=== PATIENT | female | born 1955 | race Caucasian/White ===

== ENCOUNTER 2024-06-05 06:00 | Day surgery (SDC) | payer MEDICARE, OTHER, SELFPAY ==
[2024-05-11 10:01] VITALS: BMI 20.2
--- NOTE | 2024-05-11 11:16 | HPS.HSE ---
Family Physician
-
Family Physician: NO INTERVIEW UNKNOWN
Chief Complaint
-
Paroxysmal atrial fibrillation and atrial flutter.
History of Present Illness
The patient is a 68-year-old female presenting today for paroxysmal atrial fibrillation and atrial flutter. The patient reports shortness of breath and fatigue associated with her atrial arrhythmias. She previously underwent a
cardioversion in January 2024 secondary to these diagnoses. She is on current pharmacological therapy with Metoprolol Succinate and Amiodarone. She has been compliant with Eliquis for oral anticoagulation for a CHADS-VASc of 4. She is noted to
have associated cardiomyopathy on her last echocardiogram, possibly nonischemic. She is on current goal directed therapy. She notes that her current symptoms greatly interfere with her activities of daily living and overall impact her quality of
life. She is interested in pursuing with pulmonary vein isolation for further arrhythmia management. She denies any current complaints today such as chest pain and shortness of breath at rest, nausea, vomiting, diarrhea, lightheadedness, dizziness,
cough, sore throat, or fever.
Medical History
Past Medical History
Past Medical History: Reports Other
Additional Past Medical History:
1. Paroxysmal atrial fibrillation and atrial flutter, status post cardioversion 01/2024; pharmacological therapy with Metoprolol Succinate and Amiodarone, oral anticoagulation with Eliquis.
2. Hypertension.
3. Left bundle branch block.
4. Congestive heart failure, reduced ejection fraction.
5. Cardiomyopathy, likely nonischemic.
6. Mild-moderate tricuspid regurgitation.
7. Mild mitral regurgitation.
8. Newly diagnosed obstructive sleep apnea, awaiting further management.
9. Hemorrhoids.
10. Hypothyroidism.
11. Left sided breast cancer, 1997, status post left lumpectomy; reoccurrence in 2011, status post bilateral mastectomy, radiation, and chemotherapy.
12. Glaucoma.
13. Osteoporosis.
14. Mild leukocytosis, asymptomatic.
Past Surgical History: Reports Other
Additional Past Surgical History:
1. Cardioversion.
2. Bilateral mastectomy.
3. Left lumpectomy.
4. Biopsy of left breast.
5. Wide excision of left breast.
6. D&C.
7. Anderson teeth extraction.
8. Colonoscopy x4.
Social History
Tobacco: Non-smoker
Alcohol: None
Personal:
Living: Other (She lives with her in a ranch style home. )
Family History
Family History: Not pertinent
Allergies / Home Medications
Allergy/Medication List:
Home medications:
1. Amiodarone 200 mg p.o. daily.
2. Eliquis 5 mg p.o. twice a day.
3. Beta carotene 1 capsule p.o. weekly.
4. Cholecalciferol 25 mcg p.o. weekly.
5. Jardiance 10 mg p.o. daily.
6. Glucosamine 1 capsule p.o. weekly.
7. Latanoprost 1 drop ophthalmic every evening.
8. Levothyroxine 75 mcg p.o. daily.
9. Lutein Plus 1 capsule p.o. weekly.
10. Metoprolol Succinate 25 mg p.o. twice a day.
11. Multivitamin 1 tablet p.o. weekly.
12. Entresto 97-103 mg p.o. twice a day.
13. Spironolactone 25 mg p.o. daily.
14. Calcium magnesium zinc 1 capsule p.o. daily.
Allergies: No known allergies.
Review of Systems
-
A 12 point ROS was completed and negative except as noted: Yes
Physical Exam
Vital Signs
Blood pressure 134/77. Heart rate 59. Respirations 18. Pulse ox 99% on room air.
Height 5 feet, 4.5 inches. Weight 54.3 kg. BMI 20.2.
Physical Exam
General: Well Developed, Well Nourished and No Apparent Distress
HEENT: NormoCephalic, Moist mucous membranes, Atraumatic and PERRLA
Respiratory: Clear
Cardiac: Bradycardia
GI: Soft, Non Tender and Non Distended
Musculoskeletal: No Edema and Normal Gait & Station
Skin: Warm and Dry
Neuro: AO x 3 and Nonfocal/grossly intact
Laboratory Results
-
DIAGNOSTIC STUDIES as of 05/11/2024: White blood cell count 11.0. Hemoglobin 14.4. Platelet count 291,000. PT 18.2. INR 1.46. Sodium 137. Potassium 4.7. BUN 23. Creatinine 0.9. Glucose 90. Calcium 9.4. Magnesium 2.3. AST 26. ALT 24. Albumin 4.2.
Type and screen B positive.
EKG 05/11/2024: Sinus bradycardia. Left axis deviation. Left bundle branch block.
Chest CT 05/11/2024: Short segment common vestibule for the left superior and inferior pulmonary veins, fairly commonly seen and considered normal variant. No evidence for left atrial thrombus.
Echocardiogram 01/17/2024: Moderately depressed LV systolic function. Ejection fraction is 30-35%. Significant tachycardia with [id number] variability. Mild to moderate tricuspid regurgitation. Mild mitral regurgitation.
Impression/Plan
-
IMPRESSION/PLAN:
1. Paroxysmal atrial fibrillation and atrial flutter: The patient is in need of pulmonary vein isolation with Dr. Justin Bowen on 06/05/2024. The benefits and the risks of the procedure have been explained to the patient. The patient understands
these risks and wishes to proceed. She will not be required to undergo a pre-procedural transesophageal echocardiogram as she does report compliance with her home oral anticoagulation. She will continue her Eliquis uninterrupted prior to her
ablation. She has been advised to hold Jardiance starting 06/02/2024. Her last dose of Amiodarone will be 5 days prior. She will take no medications the morning of her procedure.
[2024-06-05] VITALS (14 sets, daily range): BP systolic 106–151; BP diastolic 59–78; BMI 20.3
--- NOTE | 2024-06-05 07:27 | ITS.CL.ABL ---
Tube Room Cashier - Ablation
Ablation
Procedure Report:
Primary Engineer Sergeant: Lex Heath MD
Procedure Date: 06/05/2024
Patient History:
Patient is a pleasant 68-year-old female with a past medical history significant for paroxysmal atrial fibrillation/flutter, nonischemic cardiomyopathy, hypertension, left bundle branch block, hypothyroidism, history of breast cancer, osteoporosis.
See H&P for complete details.
Indication:
Symptomatic paroxysmal atrial fibrillation
Arrhythmia Specific History:
Prior Medical Therapies for Rate and Rhythm Control:
X Beta-cristian
[ ] Calcium channel-cristian
X Amiodarone
[ ] Dronederone
[ ] Sotalol
[ ] Flecainide
[ ] Dofetilide
[ ] Options limited by bradycardia
[ ] Options limited by comorbid renal disease
Prior Procedural Therapies for AF/AFL:
X Cardioversion
[ ] Pulmonary Vein Isolation
[ ] Posterior Wall Isolation
[ ] Additional lines (Specify)
[ ] Surgical Miles-MAZE or PVI (Specify)
Procedure Performed:
X AF ablation procedure (97747) -- includes LA/CS pacing, trans-septal, 3D mapping, + ICE
[ ] +IV drug (31111)
[ ] +Other Arrhythmia (27034)
X +Other AF Line/ablation (99722) - posterior wall isolation (floor, roof, wall)
Risks and expected recovery has been explained in detail. Alternative options have been explored, and in a shared-decision making fashion we have decided that this was the most appropriate procedure.
Method
NPO status confirmed. Grounding pad applied. Defibrillator pads applied. Continuous surface ECG, pulse oximetry, and blood pressure were monitored. Procedure was performed under general anesthesia, with anesthesia services.
Both groins were clipped, prepped with Chloraprep, and draped in sterile fashion. Time out was called. Local anesthesia administered with bupivacaine. The right femoral vein was accessed for catheter placement, using ultrasound guidance (saved to
record), micro-puncture needle/wire, and modified seldinger technique. 3 sheaths were placed. The following catheters were used:
[ ] Tacticath SE (D/F Curve) ablation catheter
X Viewflex 9Fr ICE catheter
X Inquiry decapolar 6Fr diagnostic catheter
[ ] CRD Hex 6Fr
[ ] Arctic Front Advance Cryoballoon ([ ]28mm[ ]23mm)
[ ] Achieve Advance mapping catheter ([ ]15mm[ ]20mm)
X FlexCath Contour 10 Fr with PulseSelect PFA Catheter
X Advisor HD Grid Mapping Catheter, SE
[ ] Acuson AcuNav 8 Fr ICE catheter
[ ]Other: [ ]
Intracardiac ultrasound (ICE) was carefully advanced into the right atrium to guide sheath placement over a J-wire, catheter placement, guide trans-septal puncture, identify potential complications, identify anatomic structures and ensure proper
contact between ablation catheter and tissue.
Heparin was given prior to trans-septal puncture. Heparin was given to achieve and maintain a target ACT of 300-400 seconds throughout the procedure.
Trans-septal access was performed under ICE guidance. The trans-septal puncture was performed with a SafeSept wire through a Brockenbrough needle assembly through the steerable sheath. The wire was visualized as it entered the LSPV and system
advanced under ICE guidance and fluoroscopy into the LA. The Brockenbrough needle assembly, SafeSept wire and sheath dilator were removed under negative pressure. LA pressure was measured and recorded.
ICE and 3D mapping was performed to identify relevant cardiac structures. A careful 3D map was created to assess for regions of low-voltage and abnormal electrogram signals using HD grid mapping catheter and PulseSelect catheter. Additional mapping
was performed as outlined below.
Prior to ablation, glycopyrrolate was provided. PulseSelect catheter was advanced over J-wire to the ostium of each vein. Pulmonary vein isolation was performed with ostial and antral lesions in a circumferential manner. Contact was visualized via
EAM, ICE, fluoroscopy, and EGM signals. Posterior wall isolation was performed by anchoring the J-wire within the pulmonary vein and placing the PulseSelect catheter in contact with the posterior wall as visualized by aforementioned methods.
Following completion of ablation lesions, a post-ablation voltage/activation map was performed in sinus rhythm. Entrance and exit block were confirmed for each vein and the posterior wall.
Catheter and sheath were removed from the left atrium and post-ablation intracardiac echo evaluation was consistent with pre-ablation with no changes and no pericardial effusion and there is no left atrial thrombus or left ventricle thrombus seen.
Electrophysiology study was performed. No induced arrhythmia with atrial extrastimuli (flutter protocol for induction). Hemostasis was obtained with figure of 8 stitch for each groin and with manual pressure. Protamine was used for reversal.
Estimated Blood Loss
5 mL
Complications
None
Fluoroscopy: 1.3 minutes; 1.83 mGy; DAP 0.189
Baseline Intervals:
Rhythm: SR
DC: 182 ms
QRS: 118 ms
QT: 456 ms
QTc: 443 ms
A-A: 1080 ms
R-R: 1080 ms
Post-Procedure Intervals:
DC: 180 ms
QRS: 125 ms
QT: 451 ms
QTc: 520 ms
A-A: 765 ms
R-R: 765 ms
AVWB: 370 ms
AERP: 600/250 ms
Recommendations
- Bedrest with straight-leg precautions as ordered
- Anticipate same day discharge if patient meeting clinical metrics
- Resume home medications as indicated
- Ok to resume anticoagulation tonight if patient and groin sites stable
- PPI daily for 30 days
- Reduce amiodarone to 100 mg daily
- Plan for follow-up in office as scheduled
Justin Bowen DO
Clinical Cardiac Drying Supervisor
cc: Lex Heath MD; Radha Hebert, DO
[2024-06-05 08:35] LABS: ACT-LR - POC 245 Seconds (116-155)
[2024-06-05 08:52] LABS: ACT-LR - POC 366 Seconds (116-155)
[2024-06-05 09:18] LABS: ACT-LR - POC 360 Seconds (116-155)
[2024-06-05 09:43] LABS: ACT-LR - POC 136 Seconds (116-155)
--- NOTE | 2024-06-05 15:37 | W.PN.UPDATE ---
Update Note
Progress Note Update
Pt seen post PFA. RIght groin site without ht/bleeding, non tender. OOB ambulating, urinating without difficulty. Post EKG NSR w/LBBB, 70s, no acute changes. Resume eliquis tonight, will decrease amiodarone to 100mg daily, other meds to continue as
before. Followup with Dr. Heath as scheduled. Home today if groin site/tele remain stable.
== END 2024-06-05 14:50 | disposition home or self-care (01) ==
LOC: CATH 06:00
PROVIDERS: ATTENDING PHYSICIAN Internal Medicine Cardiovascular Disease; FAMILY PHYSICIAN Internal Medicine; OTHER PHYSICIAN Internal Medicine
DX: I48.0 Paroxysmal atrial fibrillation (principal); I42.8 Other cardiomyopathies; M81.0 Age-related osteoporosis without current pathological fracture; E03.9 Hypothyroidism, unspecified; I11.0 Hypertensive heart disease with heart failure; I48.92 Unspecified atrial flutter; R06.02 Shortness of breath; Z79.899 Other long term (current) drug therapy; I44.7 Left bundle-branch block, unspecified; I08.1 Rheumatic disorders of both mitral and tricuspid valves; G47.33 Obstructive sleep apnea (adult) (pediatric); Z87.19 Personal history of other diseases of the digestive system; H40.9 Unspecified glaucoma; D72.829 Elevated white blood cell count, unspecified; Z90.13 Acquired absence of bilateral breasts and nipples; Z92.3 Personal history of irradiation; Z92.21 Personal history of antineoplastic chemotherapy; Z79.890 Hormone replacement therapy; Z79.84 Long term (current) use of oral hypoglycemic drugs; Z79.01 Long term (current) use of anticoagulants
CPT/HCPCS: C1732; C1894; C1730; C1769; C1733; C1766; 76937; 85347; 86900; 86901; 93005; 93656; 93657

== ENCOUNTER → 2024-12-03 13:56 | Outpatient (REF) | payer MEDICARE, OTHER, SELFPAY | LOC: DHSLP 13:56 | PROVIDERS: ATTENDING PHYSICIAN Internal Medicine; FAMILY PHYSICIAN Internal Medicine | DX: G47.33 Obstructive sleep apnea (adult) (pediatric) (principal) | CPT/HCPCS: 95800 ==